=== PATIENT | female | born 1975 | race Two or more races ===

== ENCOUNTER 2019-12-27 20:53 | Emergency (ER) | payer MEDICAID ==
[~2019-12-27] VITALS: Ht 157.5 cm; Wt 117.9 kg
[~2019-12-27 20:53] MED LIST: OME20GT
[2019-12-27] MEDS ORDERED: ACETAMINOPHEN 325 MG TAB PO ONE (22:00)
[2019-12-27] MEDS ORDERED: LABETALOL HCL 5 MG/ML 4ML SYRINGE IV ONE (22:00)
[2019-12-27] MEDS ORDERED: SODIUM CHLORIDE 0.9% 3,550 ML IV ONE (22:00)
[2019-12-27 22:04] LABS: Basophils # (auto) 0 10 ^3/uL (0-0.2); Eosinophils # (auto) 0 10 ^3/uL (0-0.8); Hemoglobin 13.1 g/dL (12.2-16.2); Monocytes # (auto) 0.7 10 ^3/uL (0-1.3); Neutrophils # (auto) 13.9 10 ^3/uL (1.6-8.6); White Blood Cell 15.6 10^3/uL (4.4-10.8)
[2019-12-27 22:05] LABS: Basophils % (auto) 0.2 % (0.0-2.0); Eosinophils % (auto) 0.2 % (0.0-7.0); Lymphocytes % (auto) 6.4 % (10.0-50.0); Mean Corpuscular Hemoglobin 26.6 pg (28.0-32.0); Mean Corpuscular Hgb Conc. 31.9 g/dL (32.0-36.0); Mean Corpuscular Volume 83.4 fL (80.0-100.0); Monocytes % (auto) 4.5 % (0.0-12.0); Neutrophils % (auto) 88.7 % (37.0-80.0); Platelet Count (auto) 215 10^3/uL (140-450); Red Blood Cells 4.91 10^6/uL (4.0-5.20); Red Cell Distribution Width 15.4 % (11.8-14.3)
[2019-12-27 22:24] LABS: Albumin 4.1 g/dL (3.4-5.0); BUN/Creatinine Ratio 6.9; Calcium 8.7 mg/dL (8.5-10.1); Potassium 3.7 mmol/L (3.5-5.1)
[2019-12-27 22:25] LABS: Lactic Acid w/Reflex 2.2 mmol/L (0.4-2.0)
[2019-12-27 22:27] LABS: Bilirubin, Total 0.5 mg/dL (0.2-1.0); Total Protein 8.4 g/dL (6.4-8.2)
[2019-12-27 22:45] LABS: INR 1.03 (0.9-1.15); Partial Thromboplastin Time 28.2 sec (23.0-31.2)
[2019-12-27] MEDS ORDERED: AZITHROMYCIN 500MG/ 250ML 250 ML IV ONE (23:15)
[2019-12-27] MEDS ORDERED: DexAMETHasone INJECTION 10 MG in D5W 5% 50 ML IV ONE (23:15)
[2019-12-27 23:19] LABS: Urine Bacteria FEW /hpf (None Seen); Urine Blood Negative /uL (Negative); Urine Specific Gravity 1.015 (1.001-1.035); Urine WBC 2 /hpf (0 - 5)
[2019-12-27] MEDS ORDERED: DexAMETHasone SOD PHOS 10MG/1ML VIAL INJ ONE (23:43)
[2019-12-28] MEDS ORDERED: ONDANSETRON HCL 4 MG/2 ML VIAL IV ONE (00:45)
[2019-12-28] MEDS ORDERED: LOPERAMIDE 2 mg/15ml ORAL soln PO ONE (00:45)
[2019-12-28] MEDS ORDERED: DIPHENOXYLATE W/ATROPINE 2.5 MG TAB PO ONE (01:15)
[2019-12-28] MEDS ORDERED: IOHEXOL 300 MG/ML 100ML BOTTLE IJ ONE (04:10)
[2019-12-28 06:06] VITALS: BP 149/42
== END 2019-12-28 06:15 | disposition home or self-care (01) ==
LOC: ER 20:54
DX: K52.9 Noninfective gastroenteritis and colitis, unspecified (principal); B34.9 Viral infection, unspecified; I10 Essential (primary) hypertension; Z20.828 Contact with and (suspected) exposure to other viral communicable diseases
CPT/HCPCS: 36415; 71045; 71260; 74177; 80053; 81001; 82728; 83605; 84702; 85025; 85610; 85730; 86141; 87040; 96361; 96365; 96366; 96368; 96375; 99285; C9803; J0456; J1100; J2405; J3490; J7060; Q9967; U0003